=== PATIENT | female | born 1995 | race Caucasian/White ===

== ENCOUNTER 2017-03-16 16:58 | Emergency (ER) | payer MEDICAID ==
[~2017-03-16] VITALS: Ht 152.4 cm; Wt 47.6 kg
--- NOTE | 2017-03-16 17:23 | NUR ---
[employer] AT THE BEDSIDE, [employer] HOLD PLACED, LABS DRAWN, EKG DONE, PT ALERT TO NAME/PLACE/YEAR/PRESIDENT. ASKED PT FOR URINE AND STATED SHE NEEDED WATER FIRST.
[2017-03-16 17:56] LABS: BASOPHILS # (AUTO) 0.1 K/uL (0.0-8.0); BASOPHILS % (AUTO) 0.5 % (0.0-2.0); EOSINOPHILS % (AUTO) 0.1 % (0.0-7.0); HEMOGLOBIN 12.3 g/dL (10.9-14.3); LYMPHOCYTES # (AUTO) 2.8 K/uL (20.0-40.0); LYMPHOCYTES % (AUTO) 27.2 % (20.5-51.5); MEAN CORPUSCULAR HEMOGLOBIN 28.1 uug (24.7-32.8); MEAN CORPUSCULAR HGB CONC 34 g/dL (32.3-35.6); MEAN CORPUSCULAR VOLUME 82.5 fL (75.5-95.3); MONOCYTES # (AUTO) 1.1 K/uL (2.0-10.0); NEUTROPHILS # (AUTO) 6.3 K/uL (1.8-8.9); NEUTROPHILS % (AUTO) 61.2 % (38.5-71.5); PLATELET COUNT (AUTO) 391 K/uL (179-408); RED BLOOD CELL COUNT(AUTO) 4.37 MIL/uL (3.63-4.92); WHITE BLOOD COUNT (AUTO) 10.3 K/uL (3.8-11.8)
[2017-03-16 18:12] LABS: ALANINE AMINOTRANSFERASE 29 U/L (14-59); ALKALINE PHOSPHATASE 63 U/L (50-136); ASPARTATE AMINOTRANSFERASE 27 U/L (15-37); BILIRUBIN,DIRECT 0.3 mg/dL (0.0-0.2); BILIRUBIN,TOTAL 0.7 mg/dL (0.2-1.0); CARBON DIOXIDE 25 mmol/L (21-32); CHLORIDE 99 mmol/L (98-107); CREATININE 0.8 mg/dL (0.6-1.3); GLUCOSE 69 mg/dL (74-106); POTASSIUM 3.5 mmol/L (3.5-5.1); TOTAL PROTEIN, SERUM 8.1 g/dL (6.4-8.2); UREA NITROGEN, BLOOD 7 mg/dL (7-18)
[2017-03-16 18:19] LABS: ACETAMINOPHEN < 2.0 ug/mL (10-30); ETHANOL < 3 MG/DL (0-0)
[2017-03-16 18:25] LABS: *BILIRUBIN,URIN 1+ (NEGATIVE); *BLOOD, URINE Trace-intact (NEGATIVE); *CLARITY,URINE SLIGHTLY CLOUDY (CLEAR); *COLOR,URINE YELLOW (YELLOW); *KETONES,URINE 4+ (NEGATIVE); *PROTEIN,URINE NEGATIVE (NEGATIVE); LEUKOCYTE ESTERASE ,URINE NEGATIVE (NEGATIVE); NITRITE, URINE NEGATIVE (NEGATIVE); UGLUCOSE NEGATIVE (NEGATIVE)
[2017-03-16 18:26] LABS: BACTERIA,URINE FEW /HPF (NONE SEEN); RBC,URINE 0-3 /HPF (0-3); SQUAMOUS EPITHELIAL CELL,UR MODERATE /HPF (NONE SEEN); WBC,URINE 0-3 /HPF (0-3)
--- NOTE | 2017-03-16 18:26 | NUR ---
CALLED FOR A SITTER, [employer] LEFT AND PLACED PT ON A HOLD.
--- NOTE | 2017-03-16 19:00 | NUR ---
SBAR REPORT TO MICHELLE MALLOY FROM REGISTRY.
--- NOTE | 2017-03-16 19:35 | NUR ---
Patient transferred to room 3A, 1:1 sitter at bedside for safety.
[2017-03-16 21:09] LABS: *AMPHETAMINE, URINE POSITIVE (NEGATIVE); *BARBITURATE, URINE NEGATIVE (NEGATIVE); *CANNABINOID, URINE POSITIVE (NEGATIVE); *COCCAINE, URINE POSITIVE (NEGATIVE); *OPIATE, URINE POSITIVE (NEGATIVE); *PHENCYCLIDINE SCREEN,URINE NEGATIVE (NEGATIVE)
--- NOTE | 2017-03-16 21:30 | NUR ---
Call placed to Daniel Galeana LCSW, for evaluation. Per his recommendation patient will remain in ER overnight and he will evaluate in the morning due to level of intoxication.
--- NOTE | 2017-03-16 22:00 | NUR ---
Patient is resting comfortably in bed with eyes closed
--- NOTE | 2017-03-17 00:30 | NUR ---
Patient is resting comfortably in bed with eyes closed, 1:1 sitter at bedside for safety.
--- NOTE | 2017-03-17 02:11 | NUR ---
Patient is resting comfortably in bed with eyes closed, 1:1 sitter at bedside for safety.
--- NOTE | 2017-03-17 07:40 | NUR ---
Pt moved to room4a.
--- NOTE | 2017-03-17 07:48 | NUR ---
Pt recieved in bed, lethergic, but arousable.
--- NOTE | 2017-03-17 07:50 | NUR ---
Daniel Galeana from PET called and ETA is 1 hour.
--- NOTE | 2017-03-17 08:52 | NUR ---
Patient is resting comfortably in bed with eyes closed, 1 o 1 sitter at the bedside.
--- NOTE | 2017-03-17 09:15 | NUR ---
PET allergy specialist at the bedside for psych eval.
--- NOTE | 2017-03-17 09:48 | NUR ---
Per Daniel Galeana, Pt can be discharge home since pt denies SI/HI. PET evaluater also spoke to DR King.
--- NOTE | 2017-03-17 10:44 | NUR ---
pt ate breakfast and fluids, denies pain, n/v.
--- NOTE | 2017-03-17 11:00 | NUR ---
Patient discharged to home in stable conditon. Written and verbal after care instructions given. Patient verbalizes understanding of instructions. Pt left ER w/ steady gait.
[2017-03-17 11:04] VITALS: BP 119/87
== END 2017-03-17 11:05 | disposition home or self-care (01) ==
LOC: ER 16:58
DX: R41.82 Altered mental status, unspecified (principal)
CPT/HCPCS: 36415; 70450; 71010; 80048; 80076; 80307; 81001; 84703; 85025; 93005; 99285; A4663; G0480 ×2; G0481